=== PATIENT | female | born 1970 | race American Indian/Alaskan Native ===

== ENCOUNTER 2017-12-06 18:43 | Emergency (ER) | payer MEDICARE ==
[2017-12-06 19:10] LABS: Basophils # (Auto) 0.1 K/mm3 (0.0-0.1); Basophils % (Auto) 1.3 % (0.0-1.8); Eosinophils % (Auto) 0.3 % (0.0-4.3); Hematocrit 34.2 % (30.3-42.9); Hemoglobin 10.9 gm/dl (10.1-14.3); Lymphocytes % (Auto) 30.8 % (13.4-35.0); Mean Corpuscular HGB Conc 32 % (30-34); Mean Corpuscular Volume 76 fl (79-97); Monocytes # (Auto) 1.4 K/mm3 (0.0-0.8); Monocytes % (Auto) 14.5 % (0.0-7.3); Platelet Count 349 K/mm3 (140-440); Red Blood Count 4.49 M/mm3 (3.65-5.03); Red Cell Distribution Width 16.6 % (13.2-15.2)
[2017-12-06 19:13] LABS: Mean Corpuscular Hemoglobin 24 pg (28-32)
[2017-12-06 19:20] LABS: INR 0.95 (0.87-1.13)
[2017-12-06 19:21] LABS: Partial Thromboplastin Time 30.5 Sec. (24.2-36.6)
--- NOTE | 2017-12-06 19:23 | Cat Scan Report ---
FINAL REPORT PROCEDURE: CT HEAD/BRAIN WO CON TECHNIQUE: Computerized tomography of the head was performed without contrast material. HISTORY: neuro deficits < 6hrs or sx present upon awakening COMPARISON: No prior studies are available for comparison. FINDINGS: Brain: Brain density appears normal. No evidence of intracranial hemorrhage. No parenchymal hemorrhage, mass lesions or mass effect are seen. No abnormal extraxial fluid collects or masses are seen. Nonspecific mineralization of the basal ganglia are visualized bilaterally. Ventricles: Ventricles are normal size and are midline. Bone Windows: No evidence of skull fracture. Paranasal sinuses: Clear Mastoid air cells: Clear IMPRESSION: No acute intracranial abnormalities are identified. If symptoms persist or worsen consider follow-up CT scan or MRI for further evaluation. Critical value: Wet reading was given to Dr Simon on 12/06/2017 at 7:14 p.m. [place] standard time
[2017-12-06 19:27] LABS: BUN/Creatinine Ratio 12; Blood Urea Nitrogen 12 mg/dL (7-17); Hemolysis Index 1
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
[2017-12-06] MEDS ORDERED: NS/KCL 20MEQ 20 MEQ/1,000 ML BAG IV SCH (21:00)
== END 2017-12-06 21:08 | disposition left against medical advice (07) ==
LOC: ED 18:43
DX: G81.94 Hemiplegia, unspecified affecting left nondominant side (principal); R47.1 Dysarthria and anarthria; R13.10 Dysphagia, unspecified; R42 Dizziness and giddiness; Z86.73 Personal history of transient ischemic attack (TIA), and cerebral infarction without residual deficits
CPT/HCPCS: 36415; 70450; 80048; 84484; 85025; 85610; 85670; 85730